=== PATIENT | female | born 1985 | race Caucasian/White ===

== ENCOUNTER 2016-10-30 22:32 | Emergency (ER) | payer OTHER ==
--- NOTE | ~2016-10-30 | CT4 ---
[facility] A Service of [facility] RADIOLOGY TEXT RESULTS PATIENT: ARON SEGOVIA LOCATION: [facility] : 85 UNIT #: [id number] AGE: [address]: Spenser Russell MD SEX: F ORDER DR: [id number] [facility] [address] [place], [place] [address] [id number] E MR#: [id number] Acc #: [id number] NAME: ARON SEGOVIA : 1985 SEX: F STUDY DATE/TIME: 10/30/2016 23:28 UNIT: [facility] ROOM: STUDY DESCRIPTION: CT Abd and Pelv Wo Cont Attending Physician: Spenser Russell M.D. Ordering Physician: Spenser Russell M.D. MEDICAL IMAGING REPORT This report is preliminary unless electronic signature is present EXAM CT abdomen and pelvis without IV contrast COMPARISON None INDICATIONS 31-year-old female with right-sided flank pain for 2 days. Patient also reports umn-sq-lkwff abdominal pain for [address] exam was performed with one or more of the following radiation dose reduction techniques: Automatic exposure control, adjustment of mA and/or kV according to patient size, and iterative reconstruction. Axial CT imaging of the abdomen and pelvis was performed without IV contrast. Coronal and sagittal reformats were constructed. Lack of IV contrast limits evaluation of adenopathy, vasculature and viscera. Very small fat-containing umbilical hernia. Bone island in the left femoral head. No acute fractures or suspicious osseous lesions. 7 mm noncalcified nodule within the posterior basilar segment in the left lower lobe and a separate noncalcified nodule in the left lower lobe measuring up to approximately 3 mm. Prior cholecystectomy. Unenhanced liver, pancreas, spleen, adrenal glands and right kidney are unremarkable. There is mild left pelvocaliectasis. Incidental note of a splenule posterior to the spleen. There is no renal or ureteral calculus. No hydroureter. Urinary bladder is unremarkable. There are bilateral tubal ligation clips. Unenhanced CT appearance of the uterus is within normal limits. No adnexal masses are seen. No evidence of bowel obstruction. Appendix is normal. Normal caliber of the abdominal aorta. No free fluid or pneumoperitoneum. No adenopathy. [facility]. [facility] A Service of [facility] RADIOLOGY TEXT RESULTS PATIENT: ARON SEGOVIA [id number] 85 UNIT #: [id number] AGE: [address]: Spenser Russell MD SEX: F ORDER DR: IMPRESSION 1. No acute findings in the abdomen, pelvis or imaged lower chest. 2. Prior cholecystectomy and tubal ligation. 3. 2 noncalcified nodules in the left lower lobe measuring 7 mm and 3 mm. Technically, Fleischner Society does not recommend followup imaging given the patient's age, as likelihood of malignancy is low in the absence of a known malignancy elsewhere. One could consider followup CT in 6-12 months without IV contrast, if clinically indicated. This would be without IV contrast. Dictated by... Steven Mitchell M.D. THIS IS AN ELECTRONICALLY VERIFIED REPORT Steven Mitchell M.D. at 11/05/2016 8:52 AM CHERELLE/anjana TD: 10/31/2016 03:09 JOB #: [id number] MEDICAL IMAGING REPORT COPY
[2016-10-30 18:14] LABS: URINE SOURCE CLEAN CATCH
[2016-10-30 18:25] LABS: URINE APPEARANCE CLOUDY; URINE BILIRUBIN NEG (NEG); URINE BLOOD NEG (NEG); URINE COLOR YELLOW; URINE GLUCOSE NEG (NEG); URINE KETONE NEG (NEG); URINE LEUKOCYTE ESTERASE 2+ (NEG); URINE NITRATE NEG (NEG); URINE PROTEIN NEG (NEG); URINE SPECIFIC GRAVITY 1.004 (1.003-1.035); URINE UROBILINOGEN 0.2 MG/DL (NEG)
[2016-10-30 18:29] LABS: CULTURE INDICATED? YES; U HYALINE CASTS AUWI 0-2 /[LPF]; URBCS1 AUWI 0-2 /[HPF] (0-2); URINE BACTERIA AUWI 2+ (NEGATIVE); URINE SQUAMOUS EPITHELIAL CELL FEW /[HPF]
[2016-10-30 22:12] LABS: ALBUMIN SERUM 4.5 g/dL (3.5-5.0); ALKALINE PHOSPHATASE 102 U/L (32-92); ALT (SGPT) 13 U/L (10-40); AMYLASE 14 U/L (0-46); AST (SGOT) 12 U/L (10-42); BILIRUBIN, DIRECT 0.1 mg/dL (0.0-0.2); BILIRUBIN,INDIRECT 0.5 mg/dL (0.0-0.9); BILIRUBIN,TOTAL 0.6 mg/dL (0.2-2.0); BLOOD UREA NITROGEN 8 mg/dL (9-23); BUN/CREATININE RATIO 11.42; CARBON DIOXIDE 24 mmol/L (22-31); CHLORIDE 107 mmol/L (100-111); CREATININE SERUM 0.7 mg/dL (0.6-1.4); GLOM FILT RATE Estimated ABOVE60 mL/min (>60); GLUCOSE FASTING 100 mg/dL (70-110); LIPASE 44 U/L (22-51); POTASSIUM 3.8 mmol/L (3.5-5.1); PROTEIN TOTAL SERUM 8.4 g/dL (6.0-8.3); SODIUM 136 mmol/L (135-145)
[~2016-10-30 22:32] MED LIST: ALBUTEROL; CHANTIX1 MG PO; IBUPROFEN600 MG PO; NEURONTIN100 MG PO; NO MEDICATIONS; OMEPRAZOLE20 M2; PHENERGAN25 M1 PO; PRILOSEC20 M1 PO; PRILOSEC20 MG DOB; ZITHROMAX PO; ZOFRAN PO
[2016-10-30 23:17] LABS: BASOPHIL% 0.2 % (0-2.5); EOSINOPHIL# 0.5 X10e3 (0-0.7); EOSINOPHIL% 3.5 % (0.0-7.0); HEMATOCRIT 43.5 % (35.0-45.0); HEMOGLOBIN 14.4 gm/dL (12.0-16.0); LYMPHOCYTE# 3.8 X10e3 (1.0-3.5); LYMPHOCYTE% 27.3 % (17.0-45.0); MEAN CELL VOLUME 85.7 FL (83-96); MEAN CORPUSCULAR HEMOGLOBIN 28.4 PG (28-34); MEAN CORPUSCULAR HGB CONC 33.1 g/dL (30-36); MEAN PLATELET VOLUME 8.4 FL (6.5-11.5); MONOCYTE# 0.8 X10e3 (0-1.0); MONOCYTE% 5.9 % (3.0-12.0); NEUTROPHIL# 8.8 X10e3 (1.5-7.1); NEUTROPHIL% 63.1 % (40-75); PLATELET COUNT 280 X10e3 (140-420); RED BLOOD COUNT 5.08 X10e (3.90-5.30); RED CELL DISTRIBUTION WIDTH 13.3 % (11.0-15.5)
[2016-10-30 23:18] LABS: DIFF IND NO
[2016-11-26] MEDS ORDERED: OMEPRAZOLE40 M1 PO (00:16)
== END 2016-10-31 01:00 | disposition home or self-care (01) ==
LOC: CED 22:32
PROVIDERS: Emergency Medicine
DX: N30.00 Acute cystitis without hematuria (principal); K21.9 Gastro-esophageal reflux disease without esophagitis; Z90.49 Acquired absence of other specified parts of digestive tract; F17.200 Nicotine dependence, unspecified, uncomplicated
CPT/HCPCS: 36415; 74176; 80048; 80076; 81003; 82150; 83690; 84703; 85025; 87086; 96365; 96375; 99284; J0696; J2270; J2405

== ENCOUNTER 2016-11-26 00:39 | Emergency (ER) | payer OTHER ==
--- NOTE | ~2016-11-26 | CR63 ---
[facility]. [facility] A Service of [facility] & [facility] RADIOLOGY TEXT RESULTS PATIENT: ARON SEGOVIA LOCATION: SED : 85 UNIT #: [id number] AGE: [address]: Pelon Álvarez MD SEX: F ORDER DR: [id number] [address] [address] [id number] E MR#: [id number] Acc #: [id number] NAME: ARON SEGOVIA : 1985 SEX: F STUDY DATE/TIME: 11/26/2016 0:33 UNIT: SED ROOM: STUDY DESCRIPTION: CR Chest 2 View Attending Physician: Pelon Álvarez M.D. Ordering Physician: Pelon Álvarez M.D. Primary Care Physician: No Primary Care Physician MEDICAL IMAGING REPORT This report is preliminary unless electronic signature is present. EXAM Chest, 2 views, 11/26/2016. INDICATIONS 31-year-old female with a cough, tightness in the chest and the upper back. Symptoms 2 weeks. Tobacco abuse. TECHNIQUE 2-view chest compared with 07/18/2015. FINDINGS Postop changes related to the right chest wall present. Cardiac silhouette borderline in size and stable. The vascularity is normal. There is no dense consolidation, effusion or pneumothorax. Chronic rib deformities on the right. IMPRESSION 1. Postoperative changes of the right hemithorax, otherwise negative 2-view chest. 1. Dictated by... Carlos Ruvalcaba M.D. THIS IS AN ELECTRONICALLY VERIFIED REPORT Carlos Ruvalcaba M.D. at 11/26/2016 9:57 PM Srinivasan TD: 11/26/2016 09:49 JOB #: [id number] MEDICAL IMAGING REPORT Page 1 of 1
[~2016-11-26 00:39] MED LIST changes: +OMEPRAZOLE40 M1 PO
== END 2016-11-26 02:22 | disposition home or self-care (01) ==
LOC: SED 00:39
DX: J20.9 Acute bronchitis, unspecified (principal); K21.9 Gastro-esophageal reflux disease without esophagitis; F17.210 Nicotine dependence, cigarettes, uncomplicated; Z79.899 Other long term (current) drug therapy
CPT/HCPCS: 71020; 99283

== ENCOUNTER 2016-12-23 14:11 | Emergency (ER) | payer OTHER ==
--- NOTE | ~2016-12-23 | CT2 ---
[facility]. [facility] A Service of [facility] RADIOLOGY TEXT RESULTS PATIENT: ARON SEGOVIA LOCATION: SED : 85 UNIT #: [id number] AGE: [address]: Carlos Mata MD SEX: F ORDER DR: [id number] [address] [address] [id number] E MR#: [id number] Acc #: [id number] NAME: ARON SEGOVIA : 1985 SEX: F STUDY DATE/TIME: 12/23/2016 16:21 UNIT: SED ROOM: STUDY DESCRIPTION: CT Abd and Pelv W Cont Attending Physician: Carlos Mata M.D. Referring Physician: Carlos Mata M.D. Ordering Physician: Carlos Mata M.D. Primary Care Physician: No Primary Care Physician MEDICAL IMAGING REPORT This report is preliminary unless electronic signature is present. EXAM CT abdomen and pelvis with contrast Date: 12/23/2016 HISTORY Rectal bleeding and stomach pain since this morning. Bowel movement yesterday. Nausea. Previous cholecystectomy and tubal ligation. COMPARISON CT abdomen and pelvis without contrast, 10/30/2016. TECHNIQUE This CT exam was performed with one or more of the following radiation dose reduction techniques: automatic exposure control, adjustment of mA and/or kV according to patient size, and iterative reconstruction. PROCEDURE This CT exam was performed with one or more of the following radiation dose reduction techniques: automatic exposure control, adjustment of mA and/or kV according to patient size, and iterative reconstruction. 5 mm axial images from the lung bases through lesser trochanters after intravenous contrast administration. Enteric contrast was not administered. Sagittal coronal reformed images were obtained. FINDINGS Abdomen findings: Previously described left lower lobe pulmonary nodules are not visualized on today's examination. The 3 mm nodule are not included in the field of view, and the 7 mm nodule in the left costophrenic angle resolved. [facility] A Service [facility] RADIOLOGY TEXT RESULTS PATIENT: ARON SEGOVIA LOCATION: SED : 85 UNIT #: [id number] AGE: [address]: Carlos Mata MD SEX: F ORDER DR: Cholecystectomy changes are present. The liver, spleen, pancreas, adrenals, left kidney are normal. There is focal right renal cortical scarring posteriorly in the interpolar region. Limited evaluation bowel due to lack of enteric contrast. No definite focal bowel inflammatory changes are identified. Appendix is not visualized, but no pericecal inflammation is seen. A few of the images through the abdomen are degraded by patient motion. Pelvis findings: Bilateral tubal ligation clips are in place. There is a right ovarian cyst measuring approximately 1.3 cm. No pelvic free fluid is identified. Urinary bladder and rectum are within normal limits. IMPRESSION 1. No acute findings the abdomen and pelvis. 2. Appendix not visualized but no pericecal inflammation is seen. 3. A 1.3 cm right ovarian cyst. 4. Bilateral tubal ligation. 5. Cholecystectomy. 6. Previously described 7 mm left lower lobe pulmonary nodule on 10/30/2016 appears resolved. Another 3 mm nodule described on previous study is not included in the imaging field of view on today's study. 7. Mild patient motion degradation. Dictated by... Jazzy Stephenson M.D. THIS IS AN ELECTRONICALLY VERIFIED REPORT Jazzy Stephenson M.D. at 12/25/2016 8:31 AM Jomar TD: 12/23/2016 20:56 JOB #: [id number] MEDICAL IMAGING REPORT Page 1 of 1
[2016-12-23 15:44] LABS: BASOPHIL# 0.1 X10e3 (0-0.3); BASOPHIL% 0.8 % (0-2.5); EOSINOPHIL# 0.2 X10e3 (0-0.7); EOSINOPHIL% 2.1 % (0.0-7.0); HEMATOCRIT 44.2 % (35.0-45.0); HEMOGLOBIN 15.1 gm/dL (12.0-16.0); LYMPHOCYTE# 2.6 X10e3 (1.0-3.5); LYMPHOCYTE% 26.2 % (17.0-45.0); MEAN CORPUSCULAR HEMOGLOBIN 29.4 PG (28-34); MEAN CORPUSCULAR HGB CONC 34.2 g/dL (30-36); MEAN PLATELET VOLUME 8.3 FL (6.5-11.5); MONOCYTE# 0.6 X10e3 (0-1.0); MONOCYTE% 5.8 % (3.0-12.0); NEUTROPHIL# 6.5 X10e3 (1.5-7.1); NEUTROPHIL% 65.1 % (40-75); PLATELET COUNT 273 X10e3 (140-420); RED BLOOD COUNT 5.14 X10e (3.90-5.30); RED CELL DISTRIBUTION WIDTH 13.5 % (11.0-15.5)
[2016-12-23 15:44] LABS: URINE SOURCE CLEAN CATCH
[2016-12-23 15:46] LABS: URINE APPEARANCE CLEAR; URINE BILIRUBIN NEG (NEG); URINE BLOOD NEG (NEG); URINE COLOR YELLOW; URINE GLUCOSE NEG (NORM); URINE KETONE NEG (NEG); URINE LEUKOCYTE ESTERASE NEG (NEG); URINE NITRATE NEG (NEG); URINE PROTEIN NEG (NEG); URINE SPECIFIC GRAVITY <=1.005 (1.003-1.035); URINE UROBILINOGEN 0.2 MG/DL (NORM)
[2016-12-23 15:50] LABS: DIFF IND NO
[2016-12-23 15:58] LABS: MICRO INDICATED? NO
[2016-12-23 16:06] LABS: ALBUMIN SERUM 4.3 g/dL (3.5-5.0); BILIRUBIN, DIRECT 0.1 mg/dL (0.0-0.2); BILIRUBIN,INDIRECT 0.6 mg/dL (0.0-0.9); BILIRUBIN,TOTAL 0.7 mg/dL (0.2-2.0); BUN/CREATININE RATIO 8.57; CREATININE SERUM 0.7 mg/dL (0.6-1.4); GLOM FILT RATE Estimated 115.5 mL/min (>60); POTASSIUM 3.7 mmol/L (3.5-5.1); PROTEIN TOTAL SERUM 7.7 g/dL (6.0-8.3)
== END 2016-12-23 17:13 | disposition home or self-care (01) ==
LOC: SED 14:11
PROVIDERS: Emergency Medicine
DX: K62.5 Hemorrhage of anus and rectum (principal); R10.9 Unspecified abdominal pain; R11.0 Nausea; K21.9 Gastro-esophageal reflux disease without esophagitis; Z90.49 Acquired absence of other specified parts of digestive tract; F17.200 Nicotine dependence, unspecified, uncomplicated; Z79.899 Other long term (current) drug therapy
CPT/HCPCS: 36415; 74177; 80048; 80076; 81003; 85025; 96374; 96375; 99284; J2405; Q9967

== ENCOUNTER 2017-03-19 21:31 | Emergency (ER) | payer OTHER ==
[~2017-03-19] VITALS: Ht 162.6 cm; Wt 95.2 kg
--- NOTE | ~2017-03-19 | CR72 ---
[facility]. [facility] A Service of [facility] & [facility] RADIOLOGY TEXT RESULTS PATIENT: ARON SEGOVIA LOCATION: SED : 85 UNIT #: [id number] AGE: [address]: Raphael Hutchinson MD SEX: F ORDER DR: [id number] [address] [address] [id number] E MR#: [id number] Acc #: [id number] NAME: ARON SEGOVIA : 1985 SEX: F STUDY DATE/TIME: 03/19/2017 21:58 UNIT: SED ROOM: STUDY DESCRIPTION: CR Chest Single View Portable Attending Physician: Raphael Hutchinson M.D. Ordering Physician: Raphael Hutchinson M.D. Primary Care Physician: Ronnell Hamm M.D. MEDICAL IMAGING REPORT This report is preliminary unless electronic signature is present. EXAM Portable chest 03/19/2017 HISTORY 31-year-old female with chest pain beginning this morning. COMPARISON Chest 11/26/2016. FINDINGS Frontal chest demonstrates clear lungs. No pleural effusion or pneumothorax. Heart size and mediastinum are within normal limits. Pulmonary vasculature unremarkable. IMPRESSION No acute cardiopulmonary findings. Dictated by... Raciel Joyner M.D. THIS IS AN ELECTRONICALLY VERIFIED REPORT Raciel Joyner M.D. at 03/20/2017 4:03 PM ADRIANNE/reyes TD: 03/20/2017 07:19 JOB #: [id number] MEDICAL IMAGING REPORT Page 1 of 1
--- NOTE | ~2017-03-19 | EKG ---
PATIENT: ARON SEGOVIA UNIT #: [id number] Ventricular Rate: 81 BPM Atrial Rate: 81 BPM P-R Interval: 162 ms QRS Duration: 80 ms Q-T Interval: 326 ms QTC Calculation(Bezet): 378 ms P [place]: 31 degrees Calculated R [place]: -15 degrees Calculated T [place]: 128 degrees Diagnosis Line: AGE AND GENDER SPECIFIC ECG ANALYSIS Diagnosis Line: Sinus rhythm with Fusion complexes Diagnosis Line: Diagnosis Line: Confirmed by DEYANIRA MOTA MD ([id number]) on Diagnosis Line: 03/20/2017 12:57:06 PM INTERPRETING MD: NAKUL MOLINA
[2017-03-19 22:09] LABS: BASOPHIL# 0.1 X10e3 (0-0.3); BASOPHIL% 0.7 % (0-2.5); DIFF IND NO; EOSINOPHIL# 0.2 X10e3 (0-0.7); HEMATOCRIT 40.2 % (35.0-45.0); HEMOGLOBIN 13.9 gm/dL (12.0-16.0); LYMPHOCYTE# 3.1 X10e3 (1.0-3.5); LYMPHOCYTE% 30.8 % (17.0-45.0); MEAN CELL VOLUME 85.9 FL (83-96); MEAN CORPUSCULAR HEMOGLOBIN 29.7 PG (28-34); MEAN CORPUSCULAR HGB CONC 34.6 g/dL (30-36); MEAN PLATELET VOLUME 8.2 FL (6.5-11.5); MONOCYTE# 0.7 X10e3 (0-1.0); MONOCYTE% 6.9 % (3.0-12.0); NEUTROPHIL% 59.6 % (40-75); PLATELET COUNT 270 X10e3 (140-420); RED BLOOD COUNT 4.68 X10e (3.90-5.30); RED CELL DISTRIBUTION WIDTH 12.6 % (11.0-15.5); WHITE BLOOD COUNT 10.1 X10e3 (4.0-10.5)
[2017-03-19 22:22] LABS: INR 1.2; PROTHROMBIN TIME (PATIENT) 13.5 SECONDS (9.5-12.4)
[2017-03-19 22:23] LABS: POC - CKMB <1.0 ng/mL (0.0-7.9)
[2017-03-19 22:24] LABS: POC - TROPONIN <0.05 ng/mL (<=0.05)
[2017-03-19 22:27] LABS: ALBUMIN SERUM 3.8 g/dL (3.5-5.0); BILIRUBIN,TOTAL 0.4 mg/dL (0.2-2.0); BUN/CREATININE RATIO 8.57; CALCIUM SERUM 8.6 mg/dL (8.4-10.2); CREATININE SERUM 0.7 mg/dL (0.6-1.4); GLOM FILT RATE Estimated 115.5 mL/min (>60); POTASSIUM 3.4 mmol/L (3.5-5.1); PROTEIN TOTAL SERUM 6.9 g/dL (6.0-8.3)
[2017-03-19 22:29] LABS: PARTIAL THROMBOPLASTIN TIME 26.9 SECONDS (25.6-38.1)
[2017-03-19 22:37] LABS: DDIMER <200 NG/ML (0-200)
== END 2017-03-19 23:10 | disposition home or self-care (01) ==
LOC: SED 21:31
DX: K21.9 Gastro-esophageal reflux disease without esophagitis (principal); F17.200 Nicotine dependence, unspecified, uncomplicated; Z79.899 Other long term (current) drug therapy
CPT/HCPCS: 36415; 71010; 80053; 82553; 84484; 84703; 85025; 85379; 85610; 85730; 93005; 99285

== ENCOUNTER 2017-04-23 18:58 | Emergency (ER) | payer OTHER ==
[~2017-04-23] VITALS: Ht 162.6 cm; Wt 95.2 kg
== END 2017-04-23 20:31 | disposition left against medical advice (07) ==
LOC: SED 18:58
DX: Z53.21 Procedure and treatment not carried out due to patient leaving prior to being seen by health care provider (principal)